=== PATIENT | female | born 1945 | race Caucasian/White ===

== ENCOUNTER 2016-07-28 16:54 | Emergency (ER) | payer MEDICARE, MEDICAID ==
[2016-07-28 17:41] VITALS: BP 131/55
[2016-07-28] MEDS ORDERED: Cyclobenzaprine TAB* 10 MG PO ONE (18:26)
--- NOTE | 2016-07-28 18:30 | UC ---
Back Pain HPI - HPI Summary HPI Summary: bilat flank pain, hurts to move. Has foot surgery in a week, wants to be sure it 's not a UTI. No fever or vomiting - History of Current Complaint Chief Complaint: UCBackPain Stated Complaint: BACK PAIN Time Seen by Provider: 07/28/16 18:16 Hx Obtained From: Patient Hx Last Menstrual Period: N/A Onset/Duration: Gradual Onset, Lasting Weeks - 1 Timing: Constant Severity Initially: Mild Severity Currently: Moderate Back Pain: Is Discrete @ - bilat lower flank Character: Dull, Aching, Stiffness Aggravating: Movement, Lifting, Bending Alleviating: Rest Associated Signs And Symptoms: Positive: Flank Pain, Pain with Weight Bearing. Negative: Abdominal Pain, Bladder Incontinence, Bowel Incontinence - Risk Factors AAA Risk Factors: Hypertension TAD Risk Factors: Hypertension Cauda Equina Risk Factors: Negative Epidural Abscess Risk Factors: Negative - Allergies/Home Medications Allergies/Adverse Reactions: Allergies Allergy/AdvReac Type Severity Reaction Status Date / Time Ciprofloxacin [From Cipro] Allergy Intermediate Rash Verified 07/28/16 17:34 Home Medications: Home Medications Acetaminophen [Acetaminophen Extra Stren] 1,000 mg PO Q6H PRN 07/28/16 [History Confirmed 07/28/16] PMH/Surg Hx/FS Hx/Imm Hx Endocrine History Of: Reports: Diabetes Denies: Thyroid Disease Cardiovascular History Of: Reports: Cardiac Disorders, Hypertension Respiratory History Of: Reports: COPD Denies: Asthma GI/ History Of: Denies: Ulcer Psychological History Of: Reports: Anxiety - ANXIETY- STATES HAS HAD 5 BREAK DOWNS IN THE PAST, Depression Cancer History Of: Denies: Breast Cancer - Surgical History Surgical History: Yes Surgery Procedure, Year, and Place: Left TKA, 03/29/14; Right TKA, 11/16/13; Bilateral Carpal Jabari, 2011; Quadruple Bypass, 2009; Kree Arthroplasties, ; Cholecystectomy, ; Hysterectomy, 1970 - Family History Known Family History: Positive: Cardiac Disease, Hypertension, Diabetes - Social History Occupation: Employed Part-time Lives: With Family Alcohol Use: None Substance Use Type: None Smoking Status (MU): Never Smoked Tobacco - Immunization History Most Recent Influenza Vaccination: April 2016 Most Recent Tetanus Shot: 2012 Most Recent Pneumonia Vaccination: 2012 Review of Systems Constitutional: Negative Skin: Negative Eyes: Negative ENT: Negative Respiratory: Negative Cardiovascular: Negative Gastrointestinal: Negative Genitourinary: Negative Motor: Negative Neurovascular: Negative Musculoskeletal: Decreased ROM, Myalgia Neurological: Negative Psychological: Negative All Other Systems Reviewed And Are Negative: Yes Physical Exam Triage Information Reviewed: Yes Appearance: Well-Appearing, No Pain Distress, Well-Nourished, Obese Vital Signs: Initial Vital Signs Temp 98.2 F 07/28/16 17:30 Pulse 66 07/28/16 17:30 Resp 16 07/28/16 17:30 BP 131/55 07/28/16 17:30 Pulse Ox 100 07/28/16 17:30 Vital Signs Reviewed: Yes Eye Exam: Normal Neck: Positive: Supple Respiratory Exam: Normal Cardiovascular Exam: Normal Musculoskeletal Exam: Other - mild lumbar musculature tenderness. Pain on getting up out of chair Neurological Exam: Normal Psychological Exam: Normal Skin Exam: Normal Diagnostics - Laboratory Diagnostic Studies Completed/Ordered: U/A dip neg Back Pain Course/Dx - Differential Dx/Diagnosis Provider Diagnoses: low back strain Discharge - Discharge Plan Condition: Stable Disposition: HOME Prescriptions: Cyclobenzaprine TAB* [Flexeril TAB*] 10 mg PO TID PRN #30 tab PRN Reason: back pain/stiffness Patient Education Materials: Low Back Strain (ED) Referrals: Dorene Mueller MD [Primary Care Provider] -
== END 2016-07-28 18:39 | disposition home or self-care (01) ==
LOC: UCCORT 16:54
DX: S39.012A Strain of muscle, fascia and tendon of lower back, initial encounter (principal); X58.XXXA Exposure to other specified factors, initial encounter; Y93.9 Activity, unspecified; Y92.9 Unspecified place or not applicable; Z88.1 Allergy status to other antibiotic agents
CPT/HCPCS: 99212; A9270-GY; G0463

== ENCOUNTER → 2016-08-05 | Day surgery (SDC) | payer MEDICARE, MEDICAID ==
[~2016-08-05] MED LIST: Acetaminophen TAB* 325 MG PO PRN; Buffered Lidocaine 1% SYR 3ML* 3 ML/SYR SYRINGE INTRADERM ONE; Buffered Lidocaine 1% SYR 3ML* 3 ML/SYR SYRINGE ONE; Bupivacaine 0.5% SDV PF* 30 ML VIAL ONE; Dexamethasone IV* 4 MG/ML 1 ML (4 MG) ONE; Famotidine IV* 10 MG/ML 2 ML (20 mg) ONE; HYDROcodone/ACETAMIN 5-325 MG* 1 TAB PO PRN; Ketorolac INJ* 30 MG/ML 1 ML VIAL ONE; Lidocaine 2% MPF* 2 ML VIAL ONE; Midazolam* 1 MG/ML 2 ML VIAL (2 MG) ONE; NS 0.9% 1000 ML* 1,000 ML IV SCH; Ondansetron INJ* 2 MG/ML VIAL IV PRN; PROCHLORPERAZINE INJ 5 MG/ML 2 ML VIAL IV PRN; Propofol* 10 MG/ML 20 ML BTL IV PUSH ONE; ceFAZolin 1 GM in Dextrose (*) 1 GM/50 ML BAG IVPB ONE; ceFAZolin 2 GM PREMIX (*) 2 GM/50 ML BAG IVPB ONE; fentaNYL* 50 MCG/ML 2 ML VIAL (100 MCG VIAL) IV PRN; fentaNYL* 50 MCG/ML 2 ML VIAL (100 MCG VIAL) ONE
[2016-08-05 09:36] VITALS: BP 139/81
--- NOTE | 2016-08-05 23:16 | RAD ---
CPT II Codes: 6045F INDICATION: Right first metatarsophalangeal fusion. Fluoroscopic services provided for referring physician. 1.2 seconds of fluoroscopy time was used. IMPRESSION: Fluoroscopic services provided for referring physician.
--- NOTE | 2016-08-06 05:37 | OP ---
DATE OF OPERATION: 08/05/16 - SDS DATE OF : 49 SURGEON: Ismael Gil MD SKEIN TIER: Raysa Ramos PA-C ANESTHESIOLOGIST: Dr. Bueno ANESTHESIA: General; PRE-OP DIAGNOSIS: Right first MTP joint arthritis valgus. POST-OP DIAGNOSIS: Right first MTP joint arthritis valgus. OPERATIVE PROCEDURE: Right first MTP joint fusion. DESCRIPTION OF PROCEDURE: The patient was taken to the operating room where a longitudinal incision was made over the dorsum of the first MTP joint. We made a mediolateral flap to allow visualization of the joint, which was prepared for arthrodesis using a small power alejandro. We then drilled an oblique 4.0 mm cannulated screw across the joint to provide compression, and then a Y-shaped rigid plate of the F3 set fixed distally and proximally with locking and nonlocking screws. X-ray intraoperatively showed satisfactory alignment and position of the hardware. We then irrigated thoroughly closing with 3-0 Vicryl for the capsule and 4-0 nylon for the skin and a compression dressing applied. [id number]/[facility] #: [id number] MTDD
== END | disposition home or self-care (01) ==
LOC: OR 06:14
PROVIDERS: ATTEND Orthopaedic Surgery
DX: M20.11 Hallux valgus (acquired), right foot (principal); M19.071 Primary osteoarthritis, right ankle and foot; E11.8 Type 2 diabetes mellitus with unspecified complications; Z79.4 Long term (current) use of insulin; I25.10 Atherosclerotic heart disease of native coronary artery without angina pectoris
CPT/HCPCS: 76001; 88305; C1713; C1776; J0690; J1100; J1885; J2250; J2704; J3010

== ENCOUNTER 2017-01-13 09:30 | Day surgery (SDC) | payer MEDICARE, MEDICAID ==
[~2017-01-13 09:30] MED LIST changes: -Acetaminophen TAB* 325 MG PO PRN; +Buffered Lidocaine 0.9% SYRIN* 5 ML/SYR SYRINGE INTRADERM ONE; +Buffered Lidocaine 0.9% SYRIN* 5 ML/SYR SYRINGE ONE; -Buffered Lidocaine 1% SYR 3ML* 3 ML/SYR SYRINGE INTRADERM ONE; -Buffered Lidocaine 1% SYR 3ML* 3 ML/SYR SYRINGE ONE; -Bupivacaine 0.5% SDV PF* 30 ML VIAL ONE; +Dexamethasone IV* 4 MG/ML 1 ML (4 MG) IV SLOW PU ONE; +Famotidine IV* 10 MG/ML 2 ML (20 mg) IV ONE; -HYDROcodone/ACETAMIN 5-325 MG* 1 TAB PO PRN; -Ketorolac INJ* 30 MG/ML 1 ML VIAL ONE; -Lidocaine 2% MPF* 2 ML VIAL ONE; -Midazolam* 1 MG/ML 2 ML VIAL (2 MG) ONE; -NS 0.9% 1000 ML* 1,000 ML IV SCH; -Ondansetron INJ* 2 MG/ML VIAL IV PRN; -PROCHLORPERAZINE INJ 5 MG/ML 2 ML VIAL IV PRN; -Propofol* 10 MG/ML 20 ML BTL IV PUSH ONE; -ceFAZolin 1 GM in Dextrose (*) 1 GM/50 ML BAG IVPB ONE; -ceFAZolin 2 GM PREMIX (*) 2 GM/50 ML BAG IVPB ONE; +ceFAZolin 2 GM PREMIX(*) 2 GM/50 ML BAG IVPB ONE; -fentaNYL* 50 MCG/ML 2 ML VIAL (100 MCG VIAL) IV PRN; -fentaNYL* 50 MCG/ML 2 ML VIAL (100 MCG VIAL) ONE
[2017-01-13] MEDS ORDERED: Lidocaine 2% PF * 5 ML VIAL ONE (11:11)
[2017-01-13] MEDS ORDERED: Midazolam* 1 MG/ML 5 ML VIAL (5 MG) ONE (11:18)
[2017-01-13] MEDS ORDERED: fentaNYL* 50 MCG/ML 2 ML VIAL (100 MCG VIAL) ONE (11:18)
[2017-01-13] MEDS ORDERED: Propofol* 10 MG/ML 20 ML BTL IV PUSH ONE (11:19)
[2017-01-13] MEDS ORDERED: Ondansetron INJ* 2 MG/ML VIAL IV PRN (11:35)
[2017-01-13] MEDS ORDERED: fentaNYL* 50 MCG/ML 2 ML VIAL (100 MCG VIAL) IV PRN (11:35)
[2017-01-13] MEDS ORDERED: oxyCODONE/Acetamin 5/325 MG* TAB PO PRN (11:35)
[2017-01-13 14:06] VITALS: BP 165/88
--- NOTE | 2017-01-14 07:32 | OP ---
DATE OF OPERATION: 01/13/17 - [facility] DATE OF : 49 SURGEON: Ismael Gil MD CLOTH FOLDER HAND: Raysa Ramos PA-C ANESTHESIOLOGIST: Juvencio Catalan MD ANESTHESIA: MAC PRE-OP DIAGNOSIS: Painful hardware, right first MTP joint fusion. POST-OP DIAGNOSIS: Painful hardware, right first MTP joint fusion. OPERATIVE PROCEDURE: Removal of hardware, right first MTP joint fusion. DESCRIPTION OF PROCEDURE: Patient was taken to the operating room where longitudinal incision was made over the dorsum of the first MTP joint. Mediolateral flap was raised and the regular small fragment screwdriver used to remove the oblique screw and the F3 screwdriver used to remove the dorsal plate. We also removed some of the medial eminence dorsally which was prominent with a rongeur. We irrigated thoroughly. Some cultures were sent. We closed the dorsal tissue with 2-0 Vicryl and 3-0 nylon for the skin and a compression dressing applied. [id number]/[facility] #: [id number] MTDD
== END 2017-01-13 13:30 | disposition home or self-care (01) ==
LOC: OR 09:30
PROVIDERS: ATTEND Orthopaedic Surgery
DX: T84.84XA Pain due to internal orthopedic prosthetic devices, implants and grafts, initial encounter (principal); Y83.1 Surgical operation with implant of artificial internal device as the cause of abnormal reaction of the patient, or of later complication, without mention of misadventure at the time of the procedure; M20.11 Hallux valgus (acquired), right foot; I25.10 Atherosclerotic heart disease of native coronary artery without angina pectoris; E11.9 Type 2 diabetes mellitus without complications; Z79.84 Long term (current) use of oral hypoglycemic drugs; Z95.1 Presence of aortocoronary bypass graft
CPT/HCPCS: 87070; 87073; 87205; 88300; J0690; J1100; J2250; J2704; J3010

== ENCOUNTER 2018-02-26 16:39 | Emergency (ER) | payer MEDICAID, MEDICARE ==
[2018-02-26 17:12] VITALS: BP 134/69
--- NOTE | 2018-02-26 17:40 | UC ---
Throat Pain/Nasal Claudio HPI - HPI Summary HPI Summary: The patient is a 72-year-old female with about a one-week history of sinus congestion and pain,facial pressure, postnasal drip, and cough. She has had no fever or chills. She is currently on a 30 day Holter monitor for evaluation of syncope. She states she was recently diagnosed with of valvular problem. She has had no nausea vomiting or diarrhea. She denies any chest pain. - History of Current Complaint Chief Complaint: UCRespiratory Stated Complaint: COUGH/HEADACHE/HEAD CONGESTION Time Seen by Provider: 02/26/18 17:25 Hx Obtained From: Patient Hx Last Menstrual Period: N/A Onset/Duration: Gradual Onset, Lasting Days Severity: Moderate Pain Intensity: 0 Pain Scale Used: 0-10 Numeric Cough: Nonproductive Associated Signs & Symptoms: Positive: Sinus Discomfort, Nasal Discharge Related History: Seasonal Allergies - Epiglottits Risk Factors Epiglottis Risk Factors: Negative - Allergies/Home Medications Allergies/Adverse Reactions: Allergies Allergy/AdvReac Type Severity Reaction Status Date / Time ciprofloxacin Allergy Unknown Rash Verified 02/26/18 16:52 PMH/Surg Hx/FS Hx/Imm Hx Previously Healthy: Yes Cardiovascular History: Cardiac Disease, Hypertension Respiratory History: Asthma - Surgical History Surgical History: Yes Surgery Procedure, Year, and Place: Left TKA, 03/29/14; Right TKA, 11/16/13; Bilateral Carpal Jabari, 2011; Quadruple Bypass, 2009; Kree Arthroplasties, ; Cholecystectomy, ; Hysterectomy, 1970. right bunion surgery 07/2016 - Family History Known Family History: Positive: Cardiac Disease, Hypertension, Diabetes - Social History Alcohol Use: None Substance Use Type: None Smoking Status (MU): Never Smoked Tobacco - Immunization History Most Recent Influenza Vaccination: April 2016 Most Recent Tetanus Shot: 2012 Most Recent Pneumonia Vaccination: 2012 Review of Systems Constitutional: Negative Skin: Negative Eyes: Negative ENT: Sore Throat, Ear Ache, Nasal Discharge, Sinus Congestion Respiratory: Cough Cardiovascular: Negative Gastrointestinal: Negative Genitourinary: Negative Motor: Negative Neurovascular: Negative Musculoskeletal: Negative Neurological: Negative Psychological: Negative Is Patient Immunocompromised?: No All Other Systems Reviewed And Are Negative: Yes Physical Exam Triage Information Reviewed: Yes Appearance: Well-Appearing, No Pain Distress, Well-Nourished Vital Signs: Initial Vital Signs Temp 97.4 F 02/26/18 16:55 Pulse 62 02/26/18 16:55 Resp 16 02/26/18 16:55 BP 134/69 02/26/18 16:55 Pulse Ox 100 02/26/18 16:55 Eyes: Positive: Conjunctiva Clear ENT: Positive: Hearing grossly normal, Nasal congestion, TMs normal, Sinus tenderness. Negative: Nasal drainage, Tonsillar swelling, Tonsillar exudate, Uvula midline Neck: Positive: Supple, Nontender Respiratory: Positive: Lungs clear, Normal breath sounds, No respiratory distress Cardiovascular: Positive: RRR Bowel Sounds: Positive: Present Musculoskeletal: Positive: ROM Intact, No Edema Neurological Exam: Normal Neurological: Positive: Alert Psychological Exam: Normal Skin: Positive: rashes Throat Pain/Nasal Course/Dx - Differential Dx/Diagnosis Provider Diagnoses: acute sinusitis Discharge - Sign-Out/Discharge Documenting (check all that apply): Patient Departure - Discharge Plan Condition: Stable Disposition: HOME Prescriptions: Amoxicillin PO (*) [Amoxicillin 875 MG (*)] 875 mg PO BID #20 tab Fluticasone NASAL SPRAY 50MCG* [Flonase NASAL SPRAY 50MCG*] 2 spray BOTH NARES BID #1 btl Patient Education Materials: Sinusitis (ED) Referrals: Dorene Mueller MD [Primary Care Provider] - 4 Days (if not better) - Billing Disposition and Condition Condition: STABLE Disposition: Home
== END 2018-02-26 17:50 | disposition home or self-care (01) ==
LOC: UCCORT 16:39
DX: J01.90 Acute sinusitis, unspecified (principal); Z88.1 Allergy status to other antibiotic agents
CPT/HCPCS: 99212; G0463

== ENCOUNTER 2018-07-15 18:12 | Emergency (ER) | payer SELFPAY ==
[2018-07-15 18:38] VITALS: BP 156/94
--- NOTE | 2018-07-15 19:48 | UC ---
Minor Trauma HPI - HPI Summary HPI Summary: The patient is a 73-year-old female who was at work today when she slipped on a piece of lettuce. Her right knee twisted and she fell backwards striking her head. This occurred this morning. He did not lose consciousness. He has had a mild headache. She has had some dizziness. She has had some trouble focusing. She is complaining of right knee pain. She states she has bilateral knee replacements. - History of Current Complaint Chief Complaint: UCHeadInjury Stated Complaint: HEAD INJURY Time Seen by Provider: 07/15/18 18:40 Hx Obtained From: Patient Hx Last Menstrual Period: na Onset/Duration: Sudden Onset, Gradual Onset Onset Of Pain: Immediate Severity Initially: Moderate Severity Currently: Mild Pain Intensity: 4 Pain Scale Used: 0-10 Numeric Mechanism Of Injury: Fall From A Standing Position Aggravating Factor(s): Ambulation Alleviating Factor(s): Rest Associated Signs And Symptoms: Positive: Ecchymosis, Swelling. Negative: Loss Of Consciousness Related History: Positive: Occupational Injury Body - Head: 1 - occiptial tenderness 2 - ecchymosis 3 - tender - Allergies/Home Medications Allergies/Adverse Reactions: Allergies Allergy/AdvReac Type Severity Reaction Status Date / Time ciprofloxacin Allergy Unknown Rash Verified 07/15/18 18:37 PMH/Surg Hx/FS Hx/Imm Hx Previously Healthy: Yes Endocrine History: Diabetes, Dyslipidemia Cardiovascular History: Hypertension - Surgical History Surgical History: Yes Surgery Procedure, Year, and Place: Left TKA, 03/29/14; Right TKA, 11/16/13; Bilateral Carpal Jabari, 2011; Quadruple Bypass, 2009; Kree Arthroplasties, ; Cholecystectomy, ; Hysterectomy, 1970. right bunion surgery 07/2016 - Family History Known Family History: Positive: Cardiac Disease, Hypertension, Diabetes - Social History Alcohol Use: None Substance Use Type: None Smoking Status (MU): Never Smoked Tobacco - Immunization History Most Recent Influenza Vaccination: April 2016 Most Recent Tetanus Shot: 2012 Most Recent Pneumonia Vaccination: 2012 Review of Systems All Other Systems Reviewed And Are Negative: Yes Constitutional: Positive: Negative Skin: Positive: Negative Eyes: Positive: Negative ENT: Positive: Negative Respiratory: Positive: Negative Cardiovascular: Positive: Negative Gastrointestinal: Positive: Negative Genitourinary: Positive: Negative Motor: Positive: Negative Neurovascular: Positive: Negative Musculoskeletal: Positive: Arthralgia Neurological: Positive: Headache Psychological: Positive: Negative Physical Exam Triage Information Reviewed: Yes Appearance: Well-Appearing, No Pain Distress, Well-Nourished Vital Signs: Initial Vital Signs Temp 99.0 F 07/15/18 18:32 Pulse 61 07/15/18 18:32 Resp 18 07/15/18 18:32 BP 156/94 07/15/18 18:32 Pulse Ox 99 07/15/18 18:32 Vital Signs Reviewed: Yes Eyes: Positive: Conjunctiva Clear ENT: Positive: Hearing grossly normal. Negative: Nasal congestion, Nasal drainage, Tonsillar swelling, Tonsillar exudate, Muffled voice, Hoarse voice, Uvula midline Neck: Positive: Supple, Nontender, No Lymphadenopathy Respiratory: Positive: Lungs clear, Normal breath sounds, No respiratory distress Cardiovascular: Positive: RRR, Pulses Normal Musculoskeletal: Positive: Other: - see image Neurological: Positive: Alert, Other: - non focal exam Psychological Exam: Normal Skin Exam: Normal Diagnostics - Radiology No standard instances Radiology Interpretation Completed By: ED Physician, Radiologist Summary of Radiographic Findings: right knee-? fx medial condyle of distal femur. CT - brain no intracranial lesions Minor Trauma Course/Dx - Differential Dx/Diagnosis Provider Diagnosis: Concussion, Fracture of distal end of left femur Discharge - Sign-Out/Discharge Documenting (check all that apply): Patient Departure All imaging exams completed and their final reports reviewed: No - Discharge Plan Condition: Stable Disposition: HOME Patient Education Materials: Concussion (ED), Knee Pain (ED), Knee Immobilizer (ED) Forms: *Work Release Referrals: Cooper Haley MD [Medical Doctor] - As Soon As Possible (see him re concussion) Ismael Sykes MD [Medical Doctor] - As Soon As Possible (if the radiologist see a fracture please see him) Additional Instructions: the official xr reading of your right knee is pending I am concerned you may have broke your distal femur use your cane or walker knee immobilizer call in AM for official reading of knee XR [id number] Sykes if not fractured see Dr. Tera for both knee and concussion - Billing Disposition and Condition Condition: STABLE Disposition: Home
--- NOTE | 2018-07-16 13:33 | UC ---
- Progress Note Progress Note: right Knee x-ray from July 15, 2018 has been read by the radiologist as status post total right knee replacement no acute fracture The provider from the same date had a question of possible condylar fracture of the distal femur. I called and left a message on the patient's home phone and there was no answer. If the patient calls back she just needs to be pulled at the radiologist did not see a fracture but she should still plan on the same follow-up as planned. Course/Dx - Diagnoses Provider Diagnoses: Concussion, Fracture of distal end of left femur Discharge - Sign-Out/Discharge Documenting (check all that apply): Patient Departure All imaging exams completed and their final reports reviewed: Yes - Discharge Plan Condition: Stable Disposition: HOME Patient Education Materials: Concussion (ED), Knee Pain (ED), Knee Immobilizer (ED) Forms: *Work Release Referrals: Cooper Haley MD [Medical Doctor] - As Soon As Possible (see him re concussion) Ismael Sykes MD [Medical Doctor] - As Soon As Possible (if the radiologist see a fracture please see him) Additional Instructions: the official xr reading of your right knee is pending I am concerned you may have broke your distal femur use your cane or walker knee immobilizer call in AM for official reading of knee XR [id number] Sykes if not fractured see Dr. Haley for both knee and concussion - Billing Disposition and Condition Condition: STABLE Disposition: Home
== END 2018-07-15 20:10 | disposition home or self-care (01) ==
LOC: UCEAST 18:12
DX: S72.401A Unspecified fracture of lower end of right femur, initial encounter for closed fracture (principal); S09.90XA Unspecified injury of head, initial encounter; W01.0XXA Fall on same level from slipping, tripping and stumbling without subsequent striking against object, initial encounter; Y92.89 Other specified places as the place of occurrence of the external cause; Y99.0 Civilian activity done for income or pay; Z96.651 Presence of right artificial knee joint; E11.9 Type 2 diabetes mellitus without complications; I10 Essential (primary) hypertension
CPT/HCPCS: 70450; 99212; G0463

== ENCOUNTER 2020-04-13 06:04 | Inpatient (IN) ==
[~2020-04-13 06:04] MED LIST changes: -Buffered Lidocaine 0.9% SYRIN* 5 ML/SYR SYRINGE INTRADERM ONE; -Buffered Lidocaine 0.9% SYRIN* 5 ML/SYR SYRINGE ONE; +Buffered Lidocaine 1% SYRIN 1 ml INTRADERM ONE; +Dexamethasone IV 4 MG/ML VIAL 1 ml VIAL IV SLOW PU ONE; -Dexamethasone IV* 4 MG/ML 1 ML (4 MG) IV SLOW PU ONE; -Dexamethasone IV* 4 MG/ML 1 ML (4 MG) ONE; +Famotidine IV 10 MG/ML 2 ml VIAL (20 mg) IV ONE; -Famotidine IV* 10 MG/ML 2 ML (20 mg) IV ONE; -Famotidine IV* 10 MG/ML 2 ML (20 mg) ONE; +Lactated Ringers 1000 ml BAG 1,000 ML IV SCH; -ceFAZolin 2 GM PREMIX(*) 2 GM/50 ML BAG IVPB ONE
[2020-04-13] MEDS ORDERED: Dexamethasone IV 4 MG/ML VIAL 1 ml VIAL ONE (06:24)
[2020-04-13] MEDS ORDERED: Famotidine IV 10 MG/ML 2 ml VIAL (20 mg) ONE (06:24)
[2020-04-13] MEDS ORDERED: ceFAZolin 2 GM in NS PREMIX 2 GM/100 ML BAG IVPB ONE (06:24)
[2020-04-13] MEDS ORDERED: Remifentanil 2 MG VIAL ONE ×3 (06:54→10:43)
[2020-04-13] MEDS ORDERED: Bacitracin INJECTION 50,000 UNITS ONE (07:04)
[2020-04-13] MEDS ORDERED: fentaNYL 250 mcg/5 ml 50 MCG/ML 5 ml VIAL (250 MCG) ONE (07:04)
[2020-04-13] MEDS ORDERED: Metoclopramide 5 MG/ML VIAL (10 mg) ONE (07:04)
[2020-04-13] MEDS ORDERED: Succinylcholine 200 mg VIAL 20 mg/ml 10 ml VIAL (200 mg) ONE (07:04)
[2020-04-13] MEDS ORDERED: Lidocaine 1% w EPI 1:200,000 SDV 30 ML VIAL ONE (07:04)
[2020-04-13] MEDS ORDERED: Midazolam 2 mg/2 ml VIAL 1 mg/ml 2 ml VIAL (2 mg) ONE (07:04)
[2020-04-13] MEDS ORDERED: Propofol 10 MG/ML 20 ML BTL ONE (07:04)
[2020-04-13] MEDS ORDERED: Rocuronium 50 mg VIAL 10 mg/ml 5 ml VIAL (50 mg) ONE (07:04)
[2020-04-13] MEDS ORDERED: Ondansetron 4 mg VIAL 2 MG/ML 2 ml VIAL ONE (07:04)
[2020-04-13] MEDS ORDERED: EPHEDrine (Pressors) 50 MG/ML VIAL ONE (07:07)
[2020-04-13] MEDS ORDERED: Sodium Chloride 0.9% 10 ML ONE (07:07)
[2020-04-13] MEDS ORDERED: Lidocaine 2% PF 5 ML VIAL ONE ×2 (07:07→13:01)
[2020-04-13] MEDS ORDERED: Phenylephrine 40 mcg/mL 10mL (400mcg) SYRINGE ONE (07:07)
[2020-04-13] MEDS ORDERED: Propofol 10 mg/ml 100 ML BTL 400 ML ONE (08:45)
[2020-04-13] MEDS ORDERED: Acetaminophen IV 1 GM/100ML 1,000 MG/100 ML VIAL IVPB ONE (09:20)
[2020-04-13] MEDS ORDERED: fentaNYL 100 mcg/2 ml 50 MCG/ML VIAL IV PRN (09:20)
[2020-04-13] MEDS ORDERED: DiMENhydriNATE IV 50 mg/ml 1 ml VIAL IV PUSH PRN (09:20)
[2020-04-13] MEDS ORDERED: Thrombin 5,000 UNITS 1 APPLIC KIT - topical use - TOPICAL ONE (09:20)
[2020-04-13] MEDS ORDERED: Naloxone 0.4 mg VIAL 0.4 mg/ml 1 ml VIAL IV PRN (09:20)
[2020-04-13] MEDS ORDERED: Ondansetron 4 mg VIAL 2 MG/ML 2 ml VIAL IV PRN (09:20)
[2020-04-13] MEDS ORDERED: HYDROmorphone 1 MG/1 ML SYRINGE ONE (11:11)
[2020-04-13] MEDS ORDERED: Glycopyrrolate IV 0.2 MG/ML 1 ML VIAL ONE (11:12)
[2020-04-13] MEDS ORDERED: Sugammadex 500 MG/5 ML 5 ml VIAL IV PUSH ONE (12:14)
[2020-04-13] MEDS ORDERED: HYDROcodone/ACETAMIN 5/325 mg TAB PO PRN ×2 (13:06)
[2020-04-13] MEDS ORDERED: Magnesium Hydroxide LIQ 30 ML UDC PO PRN (13:06)
[2020-04-14] MEDS ORDERED: Venlafaxine XR 75 mg PO SCH (09:00)
[2020-04-14] MEDS ORDERED: Insulin GLARGINE 100 un/ml 10 ml VIAL SUBCUT SCH (09:00)
[2020-04-14 11:18] VITALS: BP 116/58
== END 2020-04-14 14:55 | disposition home or self-care (01) | DRG 321 ==
LOC: AA 06:04 → SSU 13:06
PROVIDERS: ADMIT Neurological Surgery; ATTEND Hospitalist

== ENCOUNTER 2024-02-17 12:07 | Inpatient (IN) ==
[2024-02-17] MEDS: Lactated Ringers 1000 ml BAG 1,000 ML IV ONE ×2 (12:37→19:10)
[2024-02-17 12:48] LABS: ABS Lymphocytes 1.5 10^3/uL (1.0-4.8); ABS Monocytes 0.5 10^3/uL (0.0-0.9); ABS Neutrophils 3.5 10^3/uL (1.5-7.6); Eosinophil % 0.6 %; Hematocrit 38.7 % (35-45); Hemoglobin 12.6 g/dL (11.5-14.3); Lymphocyte % 26.7 %; Mean Corpuscular Hemoglobin 28.3 pg (27-33); Mean Corpuscular Hgb Conc 32.5 g/dL (31-36); Mean Corpuscular Volume 87.1 fL (80-97); Platelet Count 193 10^3/uL (150-450); Red Blood Count 4.44 10^6/uL (3.63-4.92); Red Cell Distribution Width 16.3 % (12-17); White Blood Count 5.6 10^3/uL (3.8-11.8)
[2024-02-17 13:40] LABS: Albumin 3.9 g/dL (3.2-5.2); Albumin/Globulin Ratio 1.4 (1-3); C Reactive Protein 1.2 mg/L (<8.01); Calcium 9.2 mg/dL (8.6-10.3); Globulin 2.7 g/dL (2-4); Phosphorus 3.8 mg/dL (2.5-5.0); Total Bilirubin 0.5 mg/dL (0.2-1.0); Total Protein 6.6 g/dL (6.4-8.9)
[2024-02-17 14:03] LABS: Creatinine, Serum 1.88 mg/dL (0.51-0.95); Magnesium 1.7 mg/dL (1.9-2.7); eGFR CKD-EPI 27.4 (>60)
[2024-02-17 14:19] LABS: High Sensitivity Troponin 1 Hr 6 pg/mL (<15)
[2024-02-17 14:56] LABS: Urine Appearance Turbid; Urine Bilirubin Negative (Negative); Urine Blood Trace (Negative); Urine Color Dark-Yellow; Urine Glucose Negative (Negative); Urine Ketones Negative (Negative); Urine Nitrite Negative (Negative); Urine Protein Trace (Negative); Urine Specific Gravity 1.013 (1.002-1.030); Urine Urobilinogen Negative (Negative); Urine pH 5.5 (5.0-8.0)
[2024-02-17 15:01] LABS: Urine Bacteria 1+ /HPF (Absent); Urine Red Blood Cell 3+(>10/hpf) /HPF (0-Trace); Urine Squamous Epithelial Cell Present /HPF (Absent); Urine White Blood Cell 3+(>20/hpf) /HPF (0-Trace)
[2024-02-17] MEDS: cefTRIAXone 1 gm/50 mL D5W 1 GM/50 ML BAG IV ONE (15:16)
[2024-02-17 15:35] LABS: Potassium 4.3 mmol/L (3.5-5.0)
[2024-02-17] MEDS: Lactated Ringers 1000 ml BAG IV.FLUID IV ONE (17:46)
[2024-02-17] MEDS: Aspirin EC 81 mg TAB.EC (enteric coated) PO SCH (18:56)
[2024-02-17] MEDS: CMCS:Solifenacin 5 mg TAB (NF) PO SCH (18:58)
[2024-02-17] MEDS: Cholecalciferol (VIT D3) 1,000 unit TAB PO SCH (18:59)
[2024-02-17] MEDS: Enoxaparin 30 MG/0.3 ML SYR SUBCUT SCH (19:06)
[2024-02-18 05:50] LABS: ABS Lymphocytes 1.5 10^3/uL (1.0-4.8); ABS Monocytes 0.5 10^3/uL (0.0-0.9); ABS Neutrophils 1.8 10^3/uL (1.5-7.6); ABS Nucleated RBC 0.01 10^3/ul; Eosinophil % 1.3 %; Hematocrit 33.7 % (35-45); Hemoglobin 11.2 g/dL (11.5-14.3); Lymphocyte % 39.6 %; Mean Corpuscular Hemoglobin 28.9 pg (27-33); Mean Corpuscular Hgb Conc 33.1 g/dL (31-36); Mean Corpuscular Volume 87.4 fL (80-97); Nucleated Red Blood Cells % 0.2 %/100WBC (0.0-0.8); Platelet Count 144 10^3/uL (150-450); Red Blood Count 3.86 10^6/uL (3.63-4.92); Red Cell Distribution Width 16.5 % (12-17); White Blood Count 3.8 10^3/uL (3.8-11.8)
[2024-02-18 06:06] LABS: Calcium 8.3 mg/dL (8.6-10.3); Creatinine, Serum 1.67 mg/dL (0.51-0.95); Magnesium 1.7 mg/dL (1.9-2.7); eGFR CKD-EPI 31.6 (>60)
[2024-02-18] MEDS ORDERED: Dextrose 50% Syringe 50 ml 25 GM/50 ML SYRINGE IV PUSH PRN (08:37)
[2024-02-18] MEDS: Magnesium Sulfate 2 gm BAG 2 GM/50 ML BAG IVPB ONE (09:13)
[2024-02-18] MEDS: Insulin GLARGINE 100 un/ml 10 ml VIAL SUBCUT SCH (09:14)
[2024-02-18 14:03] VITALS: BP 124/74
[2024-02-18] MEDS: cefTRIAXone 1 gm/50 mL D5W 1 GM/50 ML BAG IV SCH (15:35)
== END 2024-02-18 17:45 | disposition home or self-care (01) | DRG 690 ==
LOC: ED 12:07 → EDHOLD 15:54 → SSU 20:12
PROVIDERS: ADMIT Student in an Organized Health Care Education/Training Program; ATTEND Student in an Organized Health Care Education/Training Program